=== PATIENT | male | born 1980 | race Native Hawaiian/Other Pacific Islander ===

== ENCOUNTER 2021-03-01 04:56 | Emergency (ER) | payer SELFPAY ==
[2021-03-01 05:01] VITALS: BP 132/88
[2021-03-01] MEDS ORDERED: IBUPROFEN 800 MG TAB PO ONE (05:02)
[2021-03-01] MEDS ORDERED: IBUPROFEN 800 MG TAB ONE (05:02)
--- NOTE | 2021-03-01 05:03 | Event Note ---
ED Screening Note Date of service: 03/01/21 Time: 05:02 ED Screening Note: 40-year-old male patient presents to the emergency department with complaints of headache and cough for 1 week. Patient did not receive his COVID-19 vaccination series. Patient was tested for COVID-19 at an outside clinic yesterday. He is still awaiting the results. Patient's is currently being evaluated in the emergency department for similar symptoms. He has been taking Tylenol and TheraFlu with limited relief. Last dose of Tylenol was approximately 10 hours ago. Febrile in triage. General: Awake, appropriately interactive, no acute distress. Neck: Supple. Full range of motion intact. Cardiovascular: Normal peripheral perfusion. Pulmonary: No respiratory distress. Patient is speaking normally without use of accessory muscles. Skin: No apparent rashes or lesions. Neurological: No facial asymmetry. Speech is clear. Follows commands. Patient is alert and oriented. Musculoskeletal: Moves all four extremities spontaneously with normal range of motion. Psych: Cooperative. Appropriate mood and affect. I have greeted and performed a focused rapid initial assessment of this patient. A comprehensive ED assessment and evaluation of the patient, analysis of all test results, and completion of the medical decision-making process will be conducted by additional ED providers. This initial assessment/diagnostic orders/clinical plan/treatment(s) is/are subject to change based on patients health status, clinical progression and re-assessment. Further treatment and workup at subsequent clinical provider's discretion. Patient/guardian urged not to elope from the ED as their condition may be serious if not clinically assessed and managed.
--- NOTE | 2021-03-01 06:18 | XRay Report ---
CHEST 1 VIEW INDICATION: PUI. COMPARISON: None. FINDINGS: Support devices: None. Heart: Normal. Lungs/Pleura: There are mild patchy opacities in the mid to lower lungs bilaterally. No pleural abnor mality. IMPRESSION: 1. Mild bibasilar pneumonia, COVID could have this appearance. Signer Name: Yang Farias MD Signed: 03/01/2021 6:13 AM Workstation Name: [id number]
--- NOTE | 2021-03-01 06:50 | Emergency Department Report ---
ED Fever HPI - General Chief Complaint: Upper Respiratory Infection Stated Complaint: STOMACH PAINS PUI?: Yes Time Seen by Provider: 03/01/21 06:49 Source: patient Exam Limitations: no limitations - History of Present Illness Initial Comments: 40-year-old male patient presents to the emergency department with complaints of headache and cough for 1 week. Patient did not receive his COVID-19 vaccination series. Patient was tested for COVID-19 at an outside clinic yesterday. He is still awaiting the results. Patient's is currently being evaluated in the emergency department for similar symptoms. He has been taking Tylenol and TheraFlu with limited relief. Last dose of Tylenol was approximately 10 hours ag Timing/Duration: week (1 week) Fever Severity/Quality: subjective Associated Symptoms: cough, headache ED Review of Systems ROS: Stated complaint: STOMACH PAINS Other details as noted in HPI Comment: All other systems reviewed and negative Constitutional: fever, malaise Respiratory: cough. denies: shortness of breath Gastrointestinal: denies: abdominal pain, nausea, vomiting Neurological: headache ED Past Medical Hx - Past Medical History Previous Medical History?: No - Surgical History Past Surgical History?: No - Social History Smoking Status: Never Smoker Substance Use Type: None - Medications Home Medications: Home Medications Medication Instructions Recorded Confirmed Last Taken Type Acetaminophen/Codeine [Tylenol 2 tab PO Q6H PRN #16 tab 03/01/21 Unknown Rx /Codeine # 3 tab] Azithromycin [Zithromax Z-FLORECITA] 250 mg PO DAILY #5 tablet 03/01/21 Unknown Rx ED Physical Exam - General Limitations: No Limitations General appearance: alert, in no apparent distress, other (Nontoxic steady normal gait no dyspnea with exertion frequent cough) - Head Head exam: Present: atraumatic, normocephalic - Eye Eye exam: Present: conjunctival injection - ENT ENT exam: Present: mucous membranes moist - Neck Neck exam: Present: normal inspection - Respiratory Respiratory exam: Present: normal lung sounds bilaterally. Absent: respiratory distress, wheezes, rales, rhonchi - Cardiovascular Cardiovascular Exam: Present: regular rate, normal rhythm. Absent: systolic murmur, diastolic murmur, rubs, gallop - GI/Abdominal GI/Abdominal exam: Present: soft, normal bowel sounds - Rectal Rectal exam: Present: deferred - Extremities Exam Extremities exam: Present: normal inspection - Neurological Exam Neurological exam: Present: alert, oriented X3 - Psychiatric Psychiatric exam: Present: normal affect, normal mood - Skin Skin exam: Present: warm, dry, intact, normal color. Absent: rash ED Course Vital Signs 03/01/21 05:00 Temperature 100.3 F H Pulse Rate 92 H Respiratory 18 Rate Blood Pressure 132/88 O2 Sat by Pulse 98 Oximetry ED Medical Decision Making - Radiology Data Radiology results: report reviewed [facility] [address] [place] [address] XRay Report Signed Patient: ERIS BARFIELD MR #: [id number] : 1980 Acct:[id number] Age/Sex: 40 / M ADM Date: 03/01/21 Loc: ED Attending Dr: Ordering Physician: SISSY ACOSTA Date of Service: 03/01/21 Procedure(s): XR chest 1V ap Accession Number(s): [id number] cc: SISSY ACOSTA Fluoro Time In Minutes: CHEST 1 VIEW INDICATION: PUI. COMPARISON: None. FINDINGS: Support devices: None. Heart: Normal. Lungs/Pleura: There are mild patchy opacities in the mid to lower lungs bilaterally. No pleural abnormality. IMPRESSION: 1. Mild bibasilar pneumonia, COVID could have this appearance. Signer Name: Yang Farias MD Signed: 03/01/2021 6:13 AM Workstation Name: [id number] Transcribed By: Dictated By: Yang Farias MD Electronically Authenticated By: Yang Farias MD Signed Date/Time: 03/01/21612 DD/ 2 TD/TT: - Medical Decision Making Clinical impression COVID-19 pneumonia, recommended outpatient testing. Prescribed azithromycin Tylenol #3 Critical care attestation.: If time is entered above; I have spent that time in minutes in the direct care of this critically ill patient, excluding procedure time. ED Disposition Clinical Impression: Pneumonia due to COVID-19 virus Disposition: HOME / SELF CARE / HOMELESS Is pt being admited?: No Does the pt Need Aspirin: No Condition: Stable Instructions: COVID-19, Bacterial Pneumonia (ED) Prescriptions: Acetaminophen/Codeine [Tylenol /Codeine # 3 tab] 2 tab PO Q6H PRN #16 tab PRN Reason: cough/pain Azithromycin [Zithromax Z-FLORECITA] 250 mg PO DAILY #5 tablet Forms: Work/School Release Form(ED)
== END 2021-03-01 07:00 | disposition home or self-care (01) ==
LOC: ED 04:56
DX: U07.1 COVID-19 (principal); J12.82 Pneumonia due to coronavirus disease 2019; Z79.899 Other long term (current) drug therapy
CPT/HCPCS: 71045